=== PATIENT | female | born 1995 | race Two or more races ===

== ENCOUNTER 2020-03-19 08:28 | Emergency (ER) | payer SELFPAY ==
[~2020-03-19] VITALS: Ht 167.6 cm; Wt 67.8 kg
[2020-03-19 08:32] VITALS: BP 106/45
[2020-03-19 09:32] LABS: MICROSCOPIC NOT IND
[2020-03-19 09:56] LABS: BASOPHILS # (AUTO) 0.03 x10^3/uL (0-0.1); BASOPHILS % (AUTO) 1 % (0-1); EOSINOPHILS # (AUTO) 0.24 x10^3/uL (0-0.4); EOSINOPHILS % (AUTO) 4 % (1-7); LYMPHOCYTES # (AUTO) 2.12 x10^3/uL (1-3.4); LYMPHOCYTES % (AUTO) 33 % (22-44); MD NO; MEAN CORPUSCULAR HEMOGLOBIN 28.2 pg (27.0-34.8); MEAN CORPUSCULAR HGB CONC 32.3 g/dL (32.4-35.8); MEAN PLATELET VOLUME 8.5 fL (7.4-10.4); MONOCYTES # (AUTO) 0.36 x10^3/uL (0.2-0.8); MONOCYTES % (AUTO) 6 % (2-9); NEUTROPHILS # (AUTO) 3.72 x10^3/uL (1.8-6.8); NEUTROPHILS % (AUTO) 58 % (42-75); PLATELET COUNT 311 x10^3/uL (130-400); RED BLOOD COUNT 4.46 x10^6/uL (3.82-5.3); RED CELL DISTRIBUTION WIDTH 13.7 % (9.6-15.2)
--- NOTE | 2020-03-19 10:02 | NUR ---
PT IN [place]
[2020-03-19 10:07] LABS: ALBUMIN 3.4 g/dL (3.4-5.0); ANION GAP 5 mmol/L (5-15); CALCIUM 8.3 mg/dL (8.5-10.1); CHLORIDE 110 mmol/L (98-107); CREATININE 0.54 mg/dL (0.55-1.02)
== END 2020-03-19 10:57 | disposition home or self-care (01) ==
LOC: ED 10:02
DX: O26.891 Other specified pregnancy related conditions, first trimester (principal); R11.0 Nausea; R10.30 Lower abdominal pain, unspecified; Z3A.01 Less than 8 weeks gestation of pregnancy
CPT/HCPCS: 36415; 76801; 80048; 81003; 82040; 84702; 85025; 99284

== ENCOUNTER 2020-04-01 08:26 | Emergency (ER) | payer SELFPAY ==
[~2020-04-01] VITALS: Ht 170.2 cm; Wt 66.7 kg
[2020-04-01] MEDS ORDERED: ONDANSETRON ODT 4 MG ONE (08:53)
[2020-04-01] MEDS ORDERED: ONDANSETRON ODT 4 MG PO ONE (09:00)
[2020-04-01 09:05] LABS: BASOPHILS % (AUTO) 1 % (0-1); EOSINOPHILS % (AUTO) 3 % (1-7); LYMPHOCYTES % (AUTO) 29 % (22-44); MEAN CORPUSCULAR HEMOGLOBIN 28.7 pg (27.0-34.8); MEAN CORPUSCULAR HGB CONC 33.2 g/dL (32.4-35.8); MEAN PLATELET VOLUME 8.7 fL (7.4-10.4); MONOCYTES % (AUTO) 7 % (2-9); NEUTROPHILS % (AUTO) 61 % (42-75); PLATELET COUNT 315 x10^3/uL (130-400); RED BLOOD COUNT 4.22 x10^6/uL (3.82-5.3); RED CELL DISTRIBUTION WIDTH 14.1 % (9.6-15.2)
[2020-04-01 09:08] LABS: MD NO
--- NOTE | 2020-04-01 09:08 | NUR ---
PT STATES UNABLE TO PROVIDE URINE SAMPLE AT THIS TIME, SHE IS DEHYDRATED. OK TO GIVE PT WATER PER ERP, WATER PROVIDED, WILL ATTEMPT AT LATER TIME. PT MEDICATED PER MAR
[2020-04-01 09:10] LABS: ALBUMIN 3.6 g/dL (3.4-5.0); ANION GAP 5 mmol/L (5-15); CALCIUM 8.7 mg/dL (8.5-10.1); CHLORIDE 109 mmol/L (98-107); CREATININE 0.58 mg/dL (0.55-1.02)
[2020-04-01 10:21] VITALS: BP 112/60
--- NOTE | 2020-04-01 10:25 | NUR ---
PT BACK FROM [place]. UA SENT. NAD
[2020-04-01 10:30] LABS: MICROSCOPIC INDICATED
== END 2020-04-01 11:15 | disposition home or self-care (01) ==
LOC: ED 10:04
DX: O26.891 Other specified pregnancy related conditions, first trimester (principal); R11.2 Nausea with vomiting, unspecified; M54.5 Low back pain; K59.00 Constipation, unspecified; Z3A.01 Less than 8 weeks gestation of pregnancy
CPT/HCPCS: 36415; 76801; 80048; 81001; 82040; 84702; 85025; 99284; Q0162

== ENCOUNTER 2020-04-20 19:27 | Emergency (ER) | payer OTHER ==
[~2020-04-20] VITALS: Ht 170.2 cm; Wt 66.0 kg
[2020-04-20 20:22] LABS: BASOPHILS % (AUTO) 0 % (0-1); EOSINOPHILS % (AUTO) 2 % (1-7); LYMPHOCYTES % (AUTO) 20 % (22-44); MEAN CORPUSCULAR HEMOGLOBIN 28.8 pg (27.0-34.8); MEAN CORPUSCULAR HGB CONC 33.1 g/dL (32.4-35.8); MEAN PLATELET VOLUME 8.5 fL (7.4-10.4); MONOCYTES % (AUTO) 5 % (2-9); NEUTROPHILS % (AUTO) 73 % (42-75); PLATELET COUNT 383 x10^3/uL (130-400); RED CELL DISTRIBUTION WIDTH 14.5 % (9.6-15.2)
[2020-04-20 20:29] LABS: ALBUMIN 3.9 g/dL (3.4-5.0); ANION GAP 6 mmol/L (5-15); CHLORIDE 107 mmol/L (98-107)
[2020-04-20 20:31] LABS: MD NO
[2020-04-20 20:32] LABS: ALANINE AMINOTRANSFERASE 29 U/L (12-78); ALKALINE PHOSPHATASE 79 U/L (45-117); BILIRUBIN,TOTAL 0.4 mg/dL (0.2-1.0); CREATININE 0.58 mg/dL (0.55-1.02); TOTAL PROTEIN 8.4 g/dL (6.4-8.2)
--- NOTE | 2020-04-20 20:43 | NUR ---
URINE COLLECTED AND SENT [facility] SONI
[2020-04-20 20:48] LABS: MICROSCOPIC NOT IND
[2020-04-20 21:52] VITALS: BP 115/42
== END 2020-04-20 22:34 | disposition left against medical advice (07) ==
LOC: ED 19:57
DX: O26.891 Other specified pregnancy related conditions, first trimester (principal); R10.9 Unspecified abdominal pain; Z3A.08 8 weeks gestation of pregnancy
CPT/HCPCS: 36415; 80053; 81003; 85025; 99283

== ENCOUNTER 2020-04-21 11:35 | Emergency (ER) | payer OTHER ==
[~2020-04-21] VITALS: Ht 170.2 cm; Wt 65.3 kg
[2020-04-21 11:38] VITALS: BP 122/71
== END 2020-04-21 13:44 | disposition home or self-care (01) ==
LOC: ED 12:13
DX: O46.91 Antepartum hemorrhage, unspecified, first trimester (principal); Z3A.08 8 weeks gestation of pregnancy
CPT/HCPCS: 36415; 76801; 84702; 86901; 99284

== ENCOUNTER 2020-06-04 10:26 | Emergency (ER) | payer MEDICAID ==
[~2020-06-04] VITALS: Ht 167.6 cm; Wt 68.2 kg
--- NOTE | 2020-06-04 10:58 | NUR ---
PT PRESENTS TO ED WITH BILATERAL FLANK PAIN, URINARY FREQUENCY AND LOWER PELVIC CRAMPING WITH VB SPOTTING. PT AMBULATES WELL TO BATHROOM FOR UA. UA COLLECTED AND SENT. PT CHANGING INTO GOWN. ERPA IN TO ASSESS PT. PT REPORTS 15 WEEKS . LIMITED CARE. A1.
[2020-06-04] MEDS ORDERED: SODIUM CHLORIDE 0.9% 1,000ML IVBOLUS ONE (11:00)
[2020-06-04] MEDS ORDERED: PRENATAL VITAMIN PO (11:00)
[2020-06-04] MEDS ORDERED: ONDANSETRON ODT 4 MG PO ONE (11:00)
[2020-06-04] MEDS ORDERED: ONDANSETRON ODT 4 MG ONE (11:02)
--- NOTE | 2020-06-04 11:06 | NUR ---
PT EDUCATED ON MEDICATIONS ORDERED BY THE PROVIDER. PT REFUSING IVF AND PO MED AT THIS TIME. LABS DRAWN AND SENT. NAD NOTED AT THIS TIME. PT PLEASANT WITH STAFF. AWAITING US.
[2020-06-04 11:28] LABS: BASOPHILS % (AUTO) 1 % (0-1); EOSINOPHILS % (AUTO) 2 % (1-7); LYMPHOCYTES % (AUTO) 22 % (22-44); MEAN CORPUSCULAR HEMOGLOBIN 29.3 pg (27.0-34.8); MEAN CORPUSCULAR HGB CONC 34.1 g/dL (32.4-35.8); MEAN PLATELET VOLUME 8.5 fL (7.4-10.4); MONOCYTES % (AUTO) 6 % (2-9); NEUTROPHILS % (AUTO) 70 % (42-75); PLATELET COUNT 331 x10^3/uL (130-400); RED BLOOD COUNT 4.17 x10^6/uL (3.82-5.3); RED CELL DISTRIBUTION WIDTH 13.6 % (9.6-15.2)
[2020-06-04 11:33] LABS: MICROSCOPIC NOT IND
[2020-06-04 11:34] LABS: MD NO
[2020-06-04 11:35] LABS: ALANINE AMINOTRANSFERASE 24 U/L (12-78); ANION GAP 8 mmol/L (5-15); CALCIUM 8.3 mg/dL (8.5-10.1); CHLORIDE 108 mmol/L (98-107); CREATININE 0.57 mg/dL (0.55-1.02)
[2020-06-04 11:51] LABS: ALKALINE PHOSPHATASE 68 U/L (45-117); BILIRUBIN,TOTAL 0.1 mg/dL (0.2-1.0); TOTAL PROTEIN 7.2 g/dL (6.4-8.2)
--- NOTE | 2020-06-04 12:10 | NUR ---
AWAITING ERMD RECHECK. NAD NOTED IN PT AT THIS TIME.
[2020-06-04 12:36] VITALS: BP 106/63
== END 2020-06-04 12:39 | disposition home or self-care (01) ==
LOC: ED 11:11
DX: O26.892 Other specified pregnancy related conditions, second trimester (principal); M54.5 Low back pain; R11.2 Nausea with vomiting, unspecified; N93.9 Abnormal uterine and vaginal bleeding, unspecified; Z3A.15 15 weeks gestation of pregnancy
CPT/HCPCS: 36415; 76815; 80053; 81003; 84702; 85025; 86901; 99284

== ENCOUNTER 2020-06-11 10:51 | Emergency (ER) | payer MEDICAID ==
[~2020-06-11] VITALS: Ht 167.6 cm; Wt 68.7 kg
[~2020-06-11 10:51] MED LIST: PRENATAL VITAMIN PO
--- NOTE | 2020-06-11 11:30 | NUR ---
PT 18 WEEKS AND STATES LOWER ABDOMINAL PAIN YESTERDAY MADE IT DIFFICULT TO WALK ADDITIONALLY PT HAS PAIN RIGHT SIDE.
[2020-06-11 11:45] LABS: BASOPHILS % (AUTO) 0 % (0-1); EOSINOPHILS % (AUTO) 2 % (1-7); LYMPHOCYTES % (AUTO) 19 % (22-44); MEAN CORPUSCULAR HEMOGLOBIN 29.2 pg (27.0-34.8); MEAN CORPUSCULAR HGB CONC 33.8 g/dL (32.4-35.8); MEAN PLATELET VOLUME 8.5 fL (7.4-10.4); MONOCYTES % (AUTO) 6 % (2-9); NEUTROPHILS % (AUTO) 73 % (42-75); PLATELET COUNT 325 x10^3/uL (130-400); RED BLOOD COUNT 4.22 x10^6/uL (3.82-5.3); RED CELL DISTRIBUTION WIDTH 13.4 % (9.6-15.2)
[2020-06-11 11:48] LABS: MD NO
[2020-06-11 11:55] LABS: ALANINE AMINOTRANSFERASE 24 U/L (12-78); ANION GAP 5 mmol/L (5-15); CALCIUM 8.9 mg/dL (8.5-10.1); CHLORIDE 109 mmol/L (98-107)
[2020-06-11 11:58] LABS: ALKALINE PHOSPHATASE 73 U/L (45-117); BILIRUBIN,TOTAL 0.3 mg/dL (0.2-1.0); CREATININE 0.48 mg/dL (0.55-1.02); TOTAL PROTEIN 7.2 g/dL (6.4-8.2)
[2020-06-11 11:59] LABS: MICROSCOPIC INDICATED
--- NOTE | 2020-06-11 12:23 | NUR ---
ULTRASOUND AT BEDSIDE
[2020-06-11 13:07] VITALS: BP 106/48
== END 2020-06-11 13:47 | disposition home or self-care (01) ==
LOC: ED 13:26
DX: O26.892 Other specified pregnancy related conditions, second trimester (principal); R10.31 Right lower quadrant pain; Z3A.16 16 weeks gestation of pregnancy
CPT/HCPCS: 36415; 76770; 76815; 80053; 81001; 85025; 87086; 99285

== ENCOUNTER 2020-08-13 18:48 | Outpatient (CLI) | payer MEDICAID ==
[~2020-08-13] VITALS: Ht 170.2 cm; Wt 73.1 kg
[2020-08-13 19:53] LABS: AMPHETAMINE SCREEN, URINE Negative (Negative); BARBITURATE SCREEN, URINE Negative (Negative); BENZODIAZEPINE SCREEN, URINE Negative (Negative); CANNABINOID SCREEN, URINE Positive (Negative); COCAINE SCREEN, URINE Negative (Negative); METHADONE SCREEN, URINE Negative (Negative); OPIATE SCREEN, URINE Negative (Negative)
[2020-08-13 19:55] LABS: MICROSCOPIC INDICATED
[2020-08-14] MEDS ORDERED: FENTANYL PF 100 MCG/2ML IVPush PRN
== END 2020-08-13 20:30 | disposition home or self-care (01) ==
LOC: LDOP 18:48
PROVIDERS: ATTEND Obstetrics & Gynecology
DX: O26.893 Other specified pregnancy related conditions, third trimester (principal); R10.2 Pelvic and perineal pain; Z3A.25 25 weeks gestation of pregnancy
CPT/HCPCS: 80307; 81001; 87086; 99211; G0463

== ENCOUNTER 2020-09-09 23:48 | Outpatient (CLI) | payer MEDICAID ==
[~2020-09-09] VITALS: Ht 167.6 cm; Wt 73.6 kg
[2020-09-10] VITALS: BP 119/64
== END 2020-09-10 00:45 | disposition home or self-care (01) ==
LOC: LDOP 23:48
PROVIDERS: ATTEND Obstetrics & Gynecology
DX: O36.8130 Decreased fetal movements, third trimester, not applicable or unspecified (principal); Z3A.29 29 weeks gestation of pregnancy
CPT/HCPCS: 59025